=== PATIENT | male | born 1960 | race Caucasian/White ===

== ENCOUNTER 2016-12-17 02:39 | Emergency (ER) | payer BC, OTHER ==
--- NOTE | 2016-12-17 03:09 | ER Document Report ---
ED Syncope and Near Syncope - General Mode of Arrival: Medic Information source: Patient, Relative - at bedside - [facility] Patient complains to provider of: Fainting Episode witnessed (by whom): Yes - Symptoms prior to episode: Abdominal pain - cramping, Other - diaphoretic Quality of pain: Cramping Context: Became unresponsive, Collapsed Injury location: Abdomen, Chest Current symptoms: None/feels back to normal <RUIZ ALBERT - Last Filed: 12/17/16 04:07> <DARLENE POLLARD - Last Filed: 12/17/16 05:30> - General Stated Complaint: POSSIBLE SYNCOPE EPISODE Time Seen by Provider: 12/17/16 02:44 Notes: Patient is a 56-year-old male that presents to the emergency department today secondary to a syncopal episode that occurred just prior to arrival. Patient states he was awoken from his sleep this evening with abdominal pain. Patient states he went to the bathroom and had "explosive diarrhea". at bedside states she noticed the patient "did not look right", and then he "completely passed out", falling and hitting the toilet with his left chest/abdomen. states that the patient became very diaphoretic and had dilated pupils during this episode. Patient states he did not vomit. Patient has not had any recent antibiotic usage. Patient denies any chest pain or bad food recently. (RUIZ ALBERT) - Related Data Allergies/Adverse Reactions: No Known Allergies Allergy (Unverified 12/17/16 03:27) Home Medications: Current Home Medications Amlodipine Besylate [Amlodipine Besylate] 1 tab PO DAILY 12/17/16 [History] Aspirin [Ecotrin 81 mg EC Tablet] 81 mg PO DAILY 12/17/16 [History] Cabergoline [Cabergoline] 0.5 tab PO BID 12/17/16 [History] Canagliflozin/Metformin HCl [Invokamet 150-1,000 mg Tablet] 1 tab PO BID [History] Citalopram Hydrobromide [Celexa] 1 tab PO DAILY 12/17/16 [History] Gabapentin [Gabapentin] 1 cap PO BID 12/17/16 [History] Glimepiride [Glimepiride] 1 tab PO DAILY 12/17/16 [History] Hydrochlorothiazide [Hydrochlorothiazide] 1 cap PO DAILY 12/17/16 [History] Levothyroxine Sodium [Synthroid] 125 mcg PO DAILY 12/17/16 [History] Lisinopril [Lisinopril] 1 tab PO DAILY 12/17/16 [History] Meloxicam [Meloxicam] 1 tab PO DAILY 12/17/16 [History] Omeprazole [Omeprazole] 1 cap PO DAILY 12/17/16 [History] Pioglitazone HCl [Pioglitazone HCl] 1 tab PO DAILY 12/17/16 [History] Past Medical History - General Information source: Patient - Social History Smoking Status: Former Smoker Cigarette use (# per day): No Frequency of alcohol use: None Drug Abuse: None Lives with: Spouse/Significant other Family History: Reviewed & Not Pertinent - Past Medical History Cardiac Medical History: Reports: Hx Hypertension Endocrine Medical History: Reports: Hx Diabetes Mellitus Type 2 Musculoskeltal Medical History: Reports Other - Pituitary gland tumor Past Surgical History: Reports: Other - back surgery <RUIZ ALBERT - Last Filed: 12/17/16 04:07> Review of Systems - Review of Systems Constitutional: No symptoms reported EENT: No symptoms reported Cardiovascular: See HPI, Syncope. denies: Chest pain Respiratory: No symptoms reported Gastrointestinal: See HPI, Abdominal pain, Diarrhea. denies: Vomiting Genitourinary: No symptoms reported Male Genitourinary: No symptoms reported Musculoskeletal: No symptoms reported Skin: No symptoms reported Hematologic/Lymphatic: No symptoms reported Neurological/Psychological: No symptoms reported -: Yes All other systems reviewed and negative <RUIZ ALBERT - Last Filed: 12/17/16 04:07> Physical Exam - Vital signs Interpretation: Hypertensive <RUIZ ALBERT - Last Filed: 12/17/16 04:07> <DARLENE POLLARD - Last Filed: 12/17/16 05:30> - Vital signs Vitals: Temp 98.0 F 12/17/16 02:44 (DARLENE POLLARD) - Notes Notes: Physical Exam: General: Alert, appears well. HEENT: Normocephalic. Atraumatic. PERRL. Extraocular movements intact. Oropharynx clear. Neck: Supple. Non-tender. Respiratory: No respiratory distress. Clear and equal breath sounds bilaterally. Cardiovascular: Regular rate and rhythm. Abdominal: Obese. Non-tender. No distension. Normal Bowel Sounds. Back: Non-tender. No deformity or step off. Extremities: Moves all four extremities. Upper extremities: Normal inspection. Normal ROM. Lower extremities: Normal inspection. No edema. Normal ROM. Neurological: Normal cognition. AAOx4. Normal speech. Psychological: Normal affect. Normal Mood. Skin: Abrasion to left lower chest and left upper abdomen. (RUIZ ALBERT) Course - Laboratory Result Diagrams: 12/17/16 03:01 12/17/16 03:01 <RUIZ ALBERT - Last Filed: 12/17/16 04:07> - Laboratory Result Diagrams: 12/17/16 03:01 12/17/16 03:01 <DARLENE POLLARD - Last Filed: 12/17/16 05:30> - Re-evaluation Re-evalutation: 12/17/16 05:18 Patient feels better. Blood work consistent with GI illness. Troponin negative. Patient is not orthostatic at this time. Feels well and would like to go home. Stable for discharge. Follow-up with PMD. Return immediately if any worsening or concerning symptoms. Understands agrees with plan. Grateful for care. (DARLENE POLLARD) - Vital Signs Vital signs: Temp Pulse Resp BP Pulse Ox 98.0 F 70 18 142/76 H 96 12/17/16 02:44 12/17/16 04:21 12/17/16 04:31 12/17/16 04:31 12/17/16 04:31 (DARLENE POLLARD) - Laboratory Laboratory results interpreted by me: 12/17/16 12/17/16 12/17/16 03:01 03:01 04:06 WBC 14.7 H RBC 6.00 H MCV 79 L MCH 25.7 L RDW 15.1 H Absolute Neutrophils 9.8 H BUN 24 H Glucose 145 H Lipase 406.1 H Urine Glucose (UA) >=500 H (DARLENE POLLARD) Discharge <RUIZ ALBERT - Last Filed: 12/17/16 04:07> <DARLENE POLLARD - Last Filed: 12/17/16 05:30> - Discharge Clinical Impression: Vasovagal episode Diarrhea Qualifiers: Diarrhea type: unspecified type Qualified Code(s): R19.7 - Diarrhea, unspecified Syncope Qualifiers: Syncope type: unspecified Qualified Code(s): R55 - Syncope and collapse Condition: Stable Disposition: HOME, SELF-CARE Instructions: Diarrhea, Nonspecific ([facility]), Syncopal Episode ([facility]), Vasovagal Symptoms ([facility]) Additional Instructions: Please follow-up with your doctor this week. Return immediately if you have any worsening or concerning symptoms. Forms: Return to Work Referrals: RAY REN MD [Primary Care Provider] - Follow up as needed Scribe Attestation: 12/17/16 05:30 I personally performed the services described in the documentation, reviewed and edited the documentation which was dictated to the scribe in my presence, and it accurately records my words and actions. (DARLENE POLLARD) Scribe Documentation - Scribe Written by Scribe:: Whit Johnson, 12/17/2016 0318 acting as scribe for :: Liliam <RUIZ ALBERT - Last Filed: 12/17/16 04:07>
[2016-12-17 03:13] LABS: ABSOLUTE BASOPHILS # (AUTO) 0.1 10^3/uL (0.0-0.2); ABSOLUTE EOSINOPHILS # (AUTO) 0.3 10^3/uL (0.0-0.6); ABSOLUTE MONOCYTES (AUTO) 1.4 10^3/uL (0.1-1.4); ABSOLUTE NEUT (AUTO) 9.8 10^3/uL (1.7-8.2); BASOPHILS % (AUTO) 0.6 % (0-2); EOSINOPHILS % (AUTO) 2.3 % (0-6); HEMATOCRIT 47.4 % (37.9-51.0); HEMOGLOBIN 15.4 g/dL (13.5-17.0); HGB HCT DIFFERENCE -1.2; LYMPHOCYTES % (AUTO) 20.7 % (13-45); MEAN CORPUSCULAR HEMOGLOBIN 25.7 pg (27.0-33.4); MEAN CORPUSCULAR HGB CONC 32.5 g/dL (32.0-36.0); MEAN CORPUSCULAR VOLUME 79 fl (80-97); MONOCYTES % (AUTO) 9.4 % (3-13); RED CELL DISTRIBUTION WIDTH 15.1 % (11.5-14.0); WHITE BLOOD COUNT 14.7 10^3/uL (4.0-10.5)
[2016-12-17 03:23] LABS: ALANINE AMINOTRANSFERASE 37 U/L (21-72); ALBUMIN 4.1 g/dL (3.5-5.0); ALKALINE PHOSPHATASE 99 U/L (38-126); ANION GAP 16 (5-19); ASPARTATE AMINO TRANSFERASE 32 U/L (17-59); BILIRUBIN,TOTAL 0.6 mg/dL (0.2-1.3); BLOOD UREA NITROGEN 24 mg/dL (7-20); CARBON DIOXIDE 22 mmol/L (22-30); CHLORIDE 104 mmol/L (98-107); CREATININE RESULT 1.17 mg/dL (0.52-1.25); GLUCOSE 145 mg/dL (75-110); LIPASE 406.1 U/L (23-300); SODIUM 141.7 mmol/L (137-145); TOTAL PROTEIN 7.8 g/dL (6.3-8.2)
[2016-12-17] MEDS ORDERED: RINGERS SOLUTION,LACTATED 1,000 ML IV ONE (03:30)
[2016-12-17 05:01] LABS: APPEARANCE,URINE CLEAR; BILIRUBIN,URINE NEGATIVE (NEGATIVE); GLUCOSE, URINE >=500 mg/dL (NEGATIVE); KETONES,URINE NEGATIVE (NEGATIVE); LEUKOCYTE ESTERASE,URINE NEGATIVE (NEGATIVE); NITRITE,URINE NEGATIVE (NEGATIVE); PROTEIN,URINE NEGATIVE (NEGATIVE); URINE SPECIFIC GRAVITY 1.018; UROBILINOGEN,URINE NEGATIVE mg/dL (<2.0)
[2016-12-17 05:28] VITALS: BP 140/71
--- NOTE | 2016-12-17 09:43 | EKG REPORT ---
SEVERITY:- NORMAL ECG - SINUS RHYTHM : Confirmed by: Angelina Hernandez 17-Dec-2016 09:43:20
== END 2016-12-17 05:35 | disposition home or self-care (01) ==
LOC: ER 02:39
DX: R55 Syncope and collapse (principal); R19.7 Diarrhea, unspecified; R10.9 Unspecified abdominal pain; R61 Generalized hyperhidrosis; E66.9 Obesity, unspecified; I10 Essential (primary) hypertension; E11.9 Type 2 diabetes mellitus without complications; Z79.82 Long term (current) use of aspirin; Z79.899 Other long term (current) drug therapy
CPT/HCPCS: 36415; 80053; 81001; 83690; 84484; 85025; 93005; 93010; 99284

== ENCOUNTER 2017-01-22 18:33 | Inpatient (IN) | payer BC ==
[2017-01-22] MEDS ORDERED: NORMAL SALINE 1000 ML 1,000 ML IV ONE ×2 (18:57→22:30)
--- NOTE | 2017-01-22 18:59 | ER Document Report ---
ED Medical Screen (RME) - General Stated Complaint: SYNCOPE Mode of Arrival: Wheelchair Information source: Patient Notes: Patient presents with hypotension and dizziness. Patient denies any pain. Patient denies any headache or chest pain. Patient's does state that patient seems dehydrated. Patient had a similar episode about a month ago, and is still getting worked up to figure out what was causing him to become hypotensive. hx: Diabetes, pituitary gland tumor, hypertension, hypothyroid I have greeted and performed a rapid initial assessment of this patient. A comprehensive ED assessment and evaluation of the patient, analysis of test results and completion of the medical decision making process will be conducted by additional ED providers. - Related Data Allergies/Adverse Reactions: No Known Allergies Allergy (Verified 01/22/17 18:55) Past Medical History - Past Medical History Cardiac Medical History: Reports: Hx Hypertension Endocrine Medical History: Reports: Hx Diabetes Mellitus Type 2 Past Surgical History: Reports: Other - back surgery Physical Exam - Vital signs Vitals: Temp Pulse Resp BP Pulse Ox 98.2 F 108 H 14 84/54 L 93 01/22/17 18:50 01/22/17 18:50 01/22/17 18:50 01/22/17 18:50 01/22/17 18:50 - Cardiovascular Rhythm: Tachycardia Heart sounds: S1 appreciated, S2 appreciated Course - Vital Signs Vital signs: Temp Pulse Resp BP Pulse Ox 98.2 F 108 H 14 84/54 L 93 01/22/17 18:50 01/22/17 18:50 01/22/17 18:50 01/22/17 18:50 01/22/17 18:50
--- NOTE | 2017-01-22 19:28 | ER Document Report ---
ED Blood Pressure Problem - General Time seen by provider: 19:20 Mode of Arrival: Wheelchair Information source: Patient, Relative - TRAVEL OUTSIDE OF THE [place] IN LAST 30 DAYS: No - HPI Patient complains to provider of: Low blood pressure Onset: This evening Associated symptoms: Other - See above <YOSVANY ESTRADA - Last Filed: 01/23/17 00:16> <RUBYDARLENE MCCLURE KIRILL - Last Filed: 01/23/17 03:33> - General Chief Complaint: Low Blood Pressure Stated Complaint: low BP Notes: Patient is a 56 year old male, with a past medical history including HTN and pulmonary tumor, who presents to the emergency department complaining of low blood pressure. 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 reports patient was also very pale. Patient denies recent diarrhea, chest pain, difficulty urinating, back pain, and rhinorrhea. Per patient was scheduled to see a captain assistant for an echocardiography this past week but was forced to reschedule for next week. Director Of Conservation: Dr. Wellington, [facility] (YOSVANY ESTRADA) - Related Data Allergies/Adverse Reactions: No Known Allergies Allergy (Verified 01/22/17 18:55) Home Medications: Current Home Medications Exenatide Microspheres [Bydureon Pen] 2 mg SQ Q7D 01/22/17 [History] Past Medical History - General Information source: Patient - Social History Smoking Status: Former Smoker Chew tobacco use (# tins/day): No Frequency of alcohol use: None Drug Abuse: None Family History: Reviewed & Not Pertinent Patient has suicidal ideation: No Patient has homicidal ideation: No - Past Medical History Cardiac Medical History: Reports: Hx Hypertension Pulmonary Medical History: Reports: Other - hx Pulmonary Tumor Endocrine Medical History: Reports: Hx Diabetes Mellitus Type 2 Past Surgical History: Reports: Other - back surgery <YOSVANY ESTRADA - Last Filed: 01/23/17 00:16> Review of Systems - Review of Systems Constitutional: See HPI, Weakness, Other - low BP EENT: denies: Nose discharge Cardiovascular: See HPI, Syncope - near, Dizziness. denies: Chest pain Respiratory: No symptoms reported Gastrointestinal: denies: Diarrhea Genitourinary: denies: Other - Difficulty urinating Male Genitourinary: No symptoms reported Musculoskeletal: denies: Back pain Skin: See HPI, Change in color - pale Hematologic/Lymphatic: No symptoms reported Neurological/Psychological: No symptoms reported -: Yes All other systems reviewed and negative <YSOVANY ESTRADA - Last Filed: 01/23/17 00:16> Physical Exam - Vital signs Interpretation: Hypotensive, Tachycardic - General General appearance: Other - Appears uncomfortable - HEENT Head: Normocephalic, Atraumatic Mucous membranes: Dry - Respiratory Respiratory status: No respiratory distress Chest status: Nontender Breath sounds: Normal Chest palpation: Normal - Cardiovascular Rhythm: Irregularly irregular, Tachycardia Heart sounds: Normal auscultation Murmur: No - Extremities General upper extremity: Normal inspection General lower extremity: Normal inspection - Neurological Neuro grossly intact: Yes Cognition: Normal Orientation: AAOx4 [place] Coma Scale Eye Opening: Spontaneous [place] Coma Scale Verbal: Oriented [place] Coma Scale Motor: Obeys Commands [place] Coma Scale Total: 15 Speech: Normal - Psychological Associated symptoms: Normal affect, Normal mood - Skin Skin Temperature: Warm Skin Moisture: Dry Skin Color: Normal <YOSVANY ESTRADA - Last Filed: 01/23/17 00:16> Course - Laboratory Result Diagrams: 01/22/17 19:00 01/22/17 19:00 - Consults [facility] Time consulted: 20:46 - Called to discuss possible transfer Dr. Rodas Time consulted: 22:29 <YOSVANY ESTRADA - Last Filed: 01/23/17 00:16> - Laboratory Result Diagrams: 01/22/17 19:00 01/22/17 19:00 <DARLENE POLLARD - Last Filed: 01/23/17 03:33> - Re-evaluation Re-evalutation: 01/22/17 Patient is a 56-year-old male who presents with new onset atrial fibrillation with RVR. Patient was initially hypotensive. Patient was given fluids and a dose of Cardizem which she responded to. Patient had intermittent chest pain but no change in troponin. Patient was discussed with cardiology at [place] who will accept the patient in transfer if needed but feels that the patient can likely remain at this facility safely. Discussed with the patient who is agreeable to this plan. Discussed with hospitalist service who will admit the patient. Patient is currently on Cardizem drip at 15. Blood pressure stable. Heart rate is still somewhat tachycardic. Of note, the patient does have an elevated CK will be given another liter of fluids. D-dimer negative. CTA will be held at this time. Patient is stable at time of admission to the [facility]. (DARLENE POLLARD) - Vital Signs Vital signs: Temp Pulse Resp BP Pulse Ox 98.2 F 108 H 18 117/80 96 01/22/17 18:50 01/22/17 18:50 01/23/17 03:01 01/23/17 03:00 01/23/17 03:01 - Laboratory Laboratory results interpreted by me: 01/22/17 01/22/17 01/22/17 19:00 19:00 19:05 RBC 5.76 H MCV 77 L MCH 25.1 L RDW 15.8 H Glucose 158 H Creatine Kinase 264 H Urine Glucose (UA) >=500 H - Consults Dr. Rodas Reason for consultation: 01/22/172228 Dr. Rodas updated with patients 2nd Troponin which was negative 2232 Dr. Rodas called to inquire about reported low blood pressure, manually retook pressure and reported back to Dr. Rodas at 2236 that blood pressure was up to 123/96 (YOSVANY ESTRADA) Critical Care Note - Critical Care Note Total time excluding time spent on procedures (mins): 60 - evaluation and management of new onset atrial fibrillation with RVR, hypotension, chest pain, multiple re-evaluations, consultation with specialist, coordination of admission , counseling of patient <DARLENE POLLARD - Last Filed: 01/23/17 03:33> Discharge <YOSVANY ESTRADA - Last Filed: 01/23/17 00:16> - Discharge Admitting Provider: Hospitalist Unit Admitted: [facility] <DARLENE POLLARD - Last Filed: 01/23/17 03:33> - Discharge Clinical Impression: Atrial fibrillation with rapid ventricular response, New onset a-fib, Diabetes mellitus type 2 with neurological manifestations Disposition: ADMITTED INPATIENT Scribe Attestation: 01/23/17 03:33 I personally performed the services described in the documentation, reviewed and edited the documentation which was dictated to the scribe in my presence, and it accurately records my words and actions. (DARLENE POLLARD) Scribe Documentation - Scribe Written by Lizett:: lizett Mendez, 01/22/17, 2149 acting as scribe for :: Liliam <YOSVANY ESTRADA - Last Filed: 01/23/17 00:16>
[2017-01-22 19:29] LABS: ABSOLUTE BASOPHILS # (AUTO) 0.1 10^3/uL (0.0-0.2); ABSOLUTE EOSINOPHILS # (AUTO) 0.3 10^3/uL (0.0-0.6); ABSOLUTE LYMPHOCYTES (AUTO) 3.1 10^3/uL (0.5-4.7); ABSOLUTE MONOCYTES (AUTO) 0.9 10^3/uL (0.1-1.4); ABSOLUTE NEUT (AUTO) 5.7 10^3/uL (1.7-8.2); BASOPHILS % (AUTO) 0.9 % (0-2); EOSINOPHILS % (AUTO) 2.7 % (0-6); HEMATOCRIT 44.5 % (37.9-51.0); HEMOGLOBIN 14.5 g/dL (13.5-17.0); MEAN CORPUSCULAR HEMOGLOBIN 25.1 pg (27.0-33.4); MEAN CORPUSCULAR HGB CONC 32.5 g/dL (32.0-36.0); MEAN CORPUSCULAR VOLUME 77 fl (80-97); RED BLOOD COUNT 5.76 10^6/uL (4.35-5.55); RED CELL DISTRIBUTION WIDTH 15.8 % (11.5-14.0); SEGMENTED NEUTROPHILS % (AUTO) 56.4 % (42-78)
[2017-01-22 19:36] LABS: APPEARANCE,URINE CLEAR; BILIRUBIN,URINE NEGATIVE (NEGATIVE); GLUCOSE, URINE >=500 mg/dL (NEGATIVE); KETONES,URINE NEGATIVE (NEGATIVE); LEUKOCYTE ESTERASE,URINE NEGATIVE (NEGATIVE); NITRITE,URINE NEGATIVE (NEGATIVE); PROTEIN,URINE NEGATIVE (NEGATIVE); URINE SPECIFIC GRAVITY 1.029; UROBILINOGEN,URINE NEGATIVE mg/dL (<2.0)
[2017-01-22 19:49] LABS: ALANINE AMINOTRANSFERASE 45 U/L (21-72); ALKALINE PHOSPHATASE 96 U/L (38-126); ANION GAP 17 (5-19); ASPARTATE AMINO TRANSFERASE 31 U/L (17-59); BILIRUBIN,DIRECT 0.3 mg/dL (0.0-0.4); BILIRUBIN,TOTAL 0.4 mg/dL (0.2-1.3); BLOOD UREA NITROGEN 15 mg/dL (7-20); CALCIUM 9.9 mg/dL (8.4-10.2); CARBON DIOXIDE 23 mmol/L (22-30); CHLORIDE 100 mmol/L (98-107); CREATINE KINASE 264 U/L (55-170); CREATININE RESULT 1.18 mg/dL (0.52-1.25); GLUCOSE 158 mg/dL (75-110); POTASSIUM 4.5 mmol/L (3.6-5.0); SODIUM 140.1 mmol/L (137-145)
[2017-01-22 20:00] LABS: CREATINE KINASE MB 2.89 ng/mL (<4.55)
[2017-01-22 20:01] LABS: TROPONIN I < 0.012 ng/mL
[2017-01-22] MEDS ORDERED: DILTIAZEM HCL INJ 25 MG/5 ML VIAL IV ONE (20:06)
[2017-01-22] MEDS ORDERED: DILTIAZEM HCL/D5W 125 ML IV PRN (20:20)
[2017-01-23 00:11] LABS: PARTIAL THROMBOPLASTIN TIME 32.8 SEC (23.5-35.8)
[2017-01-23 00:14] LABS: D-DIMER 0.37 ug/mL (0.00-0.50)
[2017-01-23] MEDS ORDERED: DEXTROSE 50%-WATER 25 GM/50 ML DISP.SYRIN IV PRN ×2 (00:50)
[2017-01-23] MEDS ORDERED: DEXTROSE 40% GEL 15 GM TUBE PO PRN ×2 (00:50)
[2017-01-23] MEDS ORDERED: GLUCAGON,HUMAN RECOMB 1 MG INJ IM PRN (00:50)
--- NOTE | 2017-01-23 01:27 | PDOC H&P ---
History of Present Illness Admission Date/PCP: 01/23/17 00:19 PCP Natali Wellington (sp.??) fabius Patient complains of: hypotension History of Present Illness: ISAÍAS MUÑIZ is a 56 year old male with underlying hypertension, [id number] diabetes mellitus with peripheral neuropathy, hypothyroidism, hyperlipidemia, not on medications due to muscle cramps, mild anxiety and depression without suicidal or homicidal ideation, mild reflux, arthritis, currently 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 he felt weak and dizzy and had a near syncopal episode. Blood pressure at home reportedly 70/40. Was noted to be very pale by his . EMS was called. Brought to the emergency room and found to be in atrial fibrillation with rapid ventricular response. Initially hypotensive, but this has responded nicely to IV fluids and pressure has remained stable. Has required Cardizem drip, which is controlling his rate nicely. There's been no chest or abdominal pain, nausea vomiting, fever chills, diarrhea or dysuria. No known history of atrial fibrillation, atrial flutter, or irregular heartbeat. One month ago, he did suffer a syncopal episode and has actually seen his protein specialist one time for evaluation of rapid heart rate and low blood pressure. scheduled to have an echocardiogram next Thursday. Basically negative cardiac history other than hypertension. No previous [place], congestive heart failure. No history of pulmonary embolus or DVT. No recent long trip with prolonged inactivity, or unusual lower extremity swelling or tenderness. 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 Rarely drives for more than 45 minutes before he has to get out and perform other activities. Currently resting quietly, without specific complaints, other than perhaps being mildly tired. Patient has been discussed with emergency room physician who evaluated the patient. . Laboratory results are listed in [employer] and are reviewed. X-ray summary results are listed below, with full report(s) reviewed. . EKG's reviewed. And compared to a prior tracing from the of last month. Social history/personal habits: . 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 No tobacco or alcohol use for many years. No illicit drug use. Allergies/adverse reactions patient uncertain of the specific medication, but likely a statin, which caused leg cramps. Home medications are reviewed from a hand written list provided by nursing staff from their review of his medication bottles and are to be reconciled by nursing staff in [facility]. Home medications initially autopopulated into [facility] may not accurately reflect patient's true medications, dosages, and/or frequencies. REVIEW OF SYSTEMS: Constitutional: No fever or chills. Eyes: Wears glasses. ENT: No swallowing problems or complaints. No hearing problems or complaints. Pulmonary: No current complaints. Cardiovascular: See history and present illness. Gastrointestinal: No current complaints, including nausea or vomiting. Skin: No current complaints, including rashes. Hematologic: No unusual easy bruising or bleeding. Neurologic: Diabetic peripheral neuropathy involving his lower extremities Musculoskeletal: Joint pain from arthritis. Psychiatric: Mild Anxiety depression; denies suicidal or homicidal ideation. Endocrine: No current complaints, including polyuria. Genitourinary: No current complaints, including dysuria. PHYSICAL EXAMINATION: 5 feet 11 inches tall. 125 kg. BMI 38.4 kg/m. Temperature 98.2. Blood pressure 112/83. Pulse 123 and slightly irregular. 93% saturation on room air. Respirations are 12 and unlabored. Obese Otherwise well-developed male appearing approximately his stated age. Pleasant awake alert and cooperative. No obvious distress other than perhaps mildly anxious. Skin is warm and dry. No grossly obvious evidence of rash in areas of skin examined. No subcutaneous nodules palpated. ENT: Hearing grossly normal to normal conversation. Tongue midline on protrusion pink and slightly tacky. Eyes: No scleral icterus. Pupils equal and reactive to light at 4 mm. Leona conjunctivae. Neck is supple and nontender to gentle active range of motion and palpation. Midline trachea. No palpable thyroid nodule mass enlargement or tenderness. Lymphatic: No palpable cervical or clavicular nodes. Neck and lymphatic exams limited by patient body habitus. Psychiatric: Reasonable insight into acute and chronic medical issues. Oriented to time location and why here. Lungs: Auscultation reveals clear and equal breath sounds bilaterally. No use of accessory respiratory muscles. Cardiovascular: Heart slightly irregular rate and rhythm, without gallop murmur or rub. No carotid or abdominal aortic bruits. No ankle or pedal edema. palpable dorsalis pedis pulses. Abdomen: soft, obese, nontender with positive bowel sounds. Unable to adequately evaluate abdomen for masses or organomegaly due to body habitus. Extremities: Feet are warm and dry. No calf tenderness to compression. No grossly obvious visual evidence of calf swelling. Gentle manipulation of lower extremities fails to reveal any obvious evidence of injury or instability to knees hips or ankles. Neurologic: Moves upper extremities grossly normally. Patellar reflexes absent. Absent Babinski. Light touch is slightly decreased at feet, a chronic finding per patient. Dorsiflexion and plantarflexion of feet 5 / 5 and symmetric. Past Medical History Cardiac Medical History: Reports: Hyperlipidema - Not on medication for same due to muscle cramps., Hypertension Denies: Atrial Fibrillation, Congestive Heart Failure, DVT, Myocardial Infarction, Pulmonary Embolism Pulmonary Medical History: Reports: Sleep Apnea Denies: Asthma, Chronic Obstructive Pulmonary Disease (COPD) EENT Medical History: Reports: Eyes - Glasses Denies: Ears, Throat Neurological Medical History: Denies: Hemorrhagic CVA, Ischemic CVA, Seizures Endocrine Medical History: Reports: Diabetes Mellitus Type 2, Hypothyroidism Denies: Diabetes Mellitus Type 1, Hyperthyroidism Renal/ Medical History: Reports: None Malignancy Medical History: Reports: Other - Pituitary tumor, currently on medication for same, with follow-up imaging in the near future. GI Medical History: Reports: Gastroesophageal Reflux Disease Denies: Cirrhosis, Hepatitis, Peptic Ulcer Disease Musculoskeltal Medical History: Reports: Arthritis Skin Medical History: Reports: None Psychiatric Medical History: Reports: Depression, General Anxiety Disorder Denies: Alcohol Dependency, Substance Abuse, Tobacco Dependency Hematology: Reports: None Infectious Medical History: Denies: Clostridium Difficile, Hepatitis B, Hepatitis C, Methicillin- Resistant Staph Aureus Past Surgical History Past Surgical History: Reports: Orthopedic Surgery - Left hand and back Social History Information Source: Patient, Emergency Med Personnel, [facility] Records Lives with: Spouse/Significant other Smoking Status: Former Smoker Frequency of Alcohol Use: None Drugs: None - Advance Directive Resuscitation Status: Full Code Surrogate healthcare decision maker:: Family History Family History: Reviewed & Not Pertinent, Malignancy Parental Family History Reviewed: Yes Children Family History Reviewed: Yes Sibling(s) Family History Reviewed.: Yes Medication/Allergy Home Medications: RX: Aspirin [Ecotrin 81 mg EC Tablet] 81 mg PO DAILY 12/17/16 RX: Cabergoline 0.5 tab PO MOWEFR 12/17/16 RX: Canagliflozin/Metformin HCl [Invokamet 150-1,000 mg Tablet] 1 tab PO BID RX: Citalopram Hydrobromide [Celexa] 1 tab PO DAILY 12/17/16 RX: Gabapentin 1 cap PO BID 12/17/16 RX: Glimepiride 1 tab PO DAILY 12/17/16 RX: Levothyroxine Sodium [Synthroid] 125 mcg PO DAILY 12/17/16 RX: Lisinopril 1 tab PO DAILY 12/17/16 RX: Meloxicam 1 tab PO DAILY 12/17/16 RX: Omeprazole 1 cap PO DAILY 12/17/16 RX: Exenatide Microspheres [Bydureon Pen] 2 mg SQ Q7D 01/22/17 RX: Apixaban [Eliquis 5 mg Tablet] 5 mg PO BID #60 tablet 01/26/17 RX: Aspirin [Ecotrin 81 mg EC Tablet] 81 mg PO DAILY #0 tabec 01/26/17 RX: Atorvastatin Calcium [Lipitor 20 mg Tablet] 20 mg PO QHS #30 tablet RX: Diltiazem HCl [Cardizem Cd 120 mg Capsule] 120 mg PO Q12 #60 cap.sr.24h RX: Dronedarone Hydrochloride [Multaq 400 mg Tablet] 400 mg PO Q12 #60 tablet Allergies/Adverse Reactions: No Known Allergies Allergy (Verified 01/22/17 18:55) Physical Exam Vital Signs: Temp Pulse Resp BP Pulse Ox 98.2 F 108 H 16 104/83 93 01/22/17 18:50 01/22/17 18:50 01/22/17 23:49 01/23/17 00:01 01/22/17 23:01 Results Impressions: Chest X-Ray 01/22/17 00:00 IMPRESSION: NO ACUTE RADIOGRAPHIC FINDING IN THE CHEST. Assessment & Plan - Diagnosis (1) Atrial fibrillation with rapid ventricular response Is this a current diagnosis for this admission?: YesPlan: We'll continue Cardizem drip. Serial troponins. Cardiology consult. Lipid panel. Echocardiogram. I have strongly encouraged patient not to get out of bed without notifying staff , to avoid a fall with injury. Knee high SCDs for DVT prophylaxis, [along with subcutaneous Lovenox . Impression and plans were discussed with patient, who concurs. Time spent in evaluation and management of patient: 66 minutes. (2) Hypotension Qualifiers: Hypotension type: unspecified hypotension type Qualified Code(s): I95.9 - Hypotension, unspecified Is this a current diagnosis for this admission?: Yes (3) New onset a-fib Is this a current diagnosis for this admission?: YesPlan: D-dimer (4) Diabetes mellitus type 2 with neurological manifestations Is this a current diagnosis for this admission?: YesPlan: Cardiac diabetic diet. Accu-Cheks with appropriate sliding scale coverage.Resume home medications as appropriate once these have been determined and reviewed. (5) HLD (hyperlipidemia) Qualifiers: Hyperlipidemia type: unspecified Qualified Code(s): E78.5 - Hyperlipidemia, unspecified Is this a current diagnosis for this admission?: YesPlan: Lipid panel. (6) HTN (hypertension) Qualifiers: Hypertension type: essential hypertension Qualified Code(s): I10 - Essential (primary) hypertension Is this a current diagnosis for this admission?: Yes (7) Hypothyroid Qualifiers: Hypothyroidism type: unspecified Qualified Code(s): E03.9 - Hypothyroidism, unspecified Is this a current diagnosis for this admission?: YesPlan: Resume home medications as appropriate once these have been determined and reviewed. - Inpatient Certification Based on my medical assessment, after consideration of the patient's comorbidities, presenting symptoms, or acuity I expect that the services needed warrant INPATIENT care.: Yes I certify that my determination is in accordance with my understanding of Medicare's requirements for reasonable and necessary INPATIENT services [42 CFR 412.3e].: Yes Medical Necessity: Need Close Monitoring Due to Risk of Patient Decompensation, Need For Continuous Telemetry Monitoring, Risk of Complication if Not Cared For in Hospital, Risk of Diagnosis Which Will Require Inpatient Eval/Care/Monitoring Post Hospital Care: D/C or Transfer Summary
[2017-01-23 04:09] LABS: CHOLESTEROL 187.99 mg/dL (0-200); Direct HDL 27 mg/dL (>40); TRIGLYCERIDES 182 mg/dL (<150)
[2017-01-23 04:20] LABS: DIRECT LDL 133 mg/dL (<100)
[2017-01-23 04:23] LABS: VLDL CHOLESTEROL 36.4 mg/dL (10-31)
[2017-01-23] MEDS ORDERED: INFLUENZA ADLT QUAD (36MOS+) 2016-17 VAC 0.5 ML SYR IM PRN (04:50)
--- NOTE | 2017-01-23 07:06 | EKG REPORT ---
SEVERITY:- ABNORMAL ECG - ATRIAL FIBRILLATION : Confirmed by: Domingo Bell MD 23-Jan-2017 07:06:18
--- NOTE | 2017-01-23 07:07 | EKG REPORT ---
SEVERITY:- ABNORMAL ECG - ATRIAL FIBRILLATION, V-RATE 70-165 : Confirmed by: Domingo Bell MD 23-Jan-2017 07:07:13
[2017-01-23] MEDS: ASPIRIN 81 MG TABLET, ENT COATED PO SCH (09:39)
[2017-01-23] MEDS: DOCUSATE SODIUM 100 MG CAPSULE PO SCH ×2 (09:44→17:47)
[2017-01-23] MEDS ORDERED: ENOXAPARIN SODIUM INJ 40 MG/0.4 ML DISP.SYRIN SUBCUT SCH (10:00)
[2017-01-23] MEDS ORDERED: (PENDING PHARMACY ID) (Exenatide Microspheres [Bydureon Pen] 2 MG) SQ SCH (10:45)
[2017-01-23] MEDS ORDERED: CABERGOLINE PO SCH (10:45)
[2017-01-23] MEDS ORDERED: DRONEDARONE HYDROCHLORIDE 400 MG TABLET PO ONE (12:00)
--- NOTE | 2017-01-23 12:00 | PDOC CONSULTATION ---
Consultation Consult Date: 01/23/17 Attending physician:: NICKY LOMELI Consult reason:: Atrial fibrillation, generalized weakness History of Present Illness Admission Date/PCP: 01/23/17 00:48 RAY REN MD Patient complains of: Generalized weakness and near syncope History of Present Illness: ISAÍAS MUÑIZ is a 56 year old male with underlying hypertension, [id number] diabetes mellitus with peripheral neuropathy, hypothyroidism, hyperlipidemia, not on medications due to muscle cramps, mild anxiety and depression without suicidal or homicidal ideation, mild reflux, arthritis, and currently 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 Blood pressure at home reportedly 70/40. Was noted to be very pale by his . EMS was called. Brought to the emergency room and found to be in atrial fibrillation with rapid ventricular response. Initially hypotensive, but this has responded nicely to IV fluids and pressure has remained stable. Has required Cardizem drip, which is controlling his rate nicely. There's been no chest or abdominal pain, nausea vomiting, fever chills, diarrhea or dysuria. No known history of atrial fibrillation, atrial flutter, or irregular heartbeat. One month ago, he did suffer a syncopal episode and has actually seen his border patrol officer one time for evaluation of rapid heart rate and low blood pressure. His axillae scheduled to have an echocardiogram next Thursday. Basically negative cardiac history other than hypertension. No previous [place], congestive heart failure. No history of pulmonary embolus or DVT. No recent long trip with prolonged inactivity, or unusual lower extremity swelling or tenderness. 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 Rarely drives for more than 45 minutes before he has to get out and perform other activities. Currently resting quietly, without specific complaints, other than perhaps being mildly tired. This history was reviewed and confirmed. There is no history of chest pain. Past Medical History Cardiac Medical History: Reports: Hyperlipidema - Not on medication for same due to muscle cramps., Hypertension Denies: Atrial Fibrillation, Congestive Heart Failure, DVT, Myocardial Infarction, Pulmonary Embolism Pulmonary Medical History: Reports: Sleep Apnea, Other - hx Pulmonary Tumor Denies: Asthma, Chronic Obstructive Pulmonary Disease (COPD) EENT Medical History: Reports: Eyes - Glasses Denies: Ears, Throat Neurological Medical History: Denies: Hemorrhagic CVA, Ischemic CVA, Seizures Endocrine Medical History: Reports: Diabetes Mellitus Type 2, Hypothyroidism Denies: Diabetes Mellitus Type 1, Hyperthyroidism Renal/ Medical History: Reports: None Malignancy Medical History: Reports: Other - Pituitary tumor, currently on medication for same, with follow-up imaging in the near future. GI Medical History: Reports: Gastroesophageal Reflux Disease Denies: Cirrhosis, Hepatitis, Peptic Ulcer Disease Musculoskeltal Medical History: Reports: Arthritis Skin Medical History: Reports: None Psychiatric Medical History: Reports: General Anxiety Disorder Denies: Alcohol Dependency, Depression, Substance Abuse, Tobacco Dependency Hematology: Reports: None Infectious Medical History: Denies: Clostridium Difficile, Hepatitis B, Hepatitis C, Methicillin- Resistant Staph Aureus Past Surgical History Past Surgical History: Reports: Orthopedic Surgery - Left hand and back, Other - back surgery Social History Information Source: Patient Lives with: Spouse/Significant other Smoking Status: Former Smoker Number of Years Smokin Last Time Smoked: 1986 Frequency of Alcohol Use: None Hx Recreational Drug Use: Yes Drugs: Marijuana Hx Prescription Drug Abuse: No - Advance Directive Resuscitation Status: Full Code Surrogate healthcare decision maker:: Patient's Family History Family History: Reviewed & Not Pertinent, Malignancy Parental Family History Reviewed: Yes Children Family History Reviewed: Yes Sibling(s) Family History Reviewed.: Yes Medication/Allergy Home Medications: Amlodipine Besylate [Amlodipine Besylate] 1 tab PO DAILY 12/17/16 Aspirin [Ecotrin 81 mg EC Tablet] 81 mg PO DAILY 12/17/16 Cabergoline [Cabergoline] 0.5 tab PO MOWEFR 12/17/16 Canagliflozin/Metformin HCl [Invokamet 150-1,000 mg Tablet] 1 tab PO BID Citalopram Hydrobromide [Celexa] 1 tab PO DAILY 12/17/16 Gabapentin [Gabapentin] 1 cap PO BID 12/17/16 Glimepiride [Glimepiride] 1 tab PO DAILY 12/17/16 Hydrochlorothiazide [Hydrochlorothiazide] 1 cap PO DAILY 12/17/16 Levothyroxine Sodium [Synthroid] 125 mcg PO DAILY 12/17/16 Lisinopril [Lisinopril] 1 tab PO DAILY 12/17/16 Meloxicam [Meloxicam] 1 tab PO DAILY 12/17/16 Omeprazole [Omeprazole] 1 cap PO DAILY 12/17/16 Pioglitazone HCl [Pioglitazone HCl] 1 tab PO DAILY 12/17/16 Exenatide Microspheres [Bydureon Pen] 2 mg SQ Q7D 01/22/17 Allergies/Adverse Reactions: No Known Allergies Allergy (Verified 01/22/17 18:55) Review of Systems Review of Systems: Please see history of present illness and past medical history as wall. Constitutional: No fever or chills reported. Noted general fatigue and tiredness. Head : No recent chronic headaches, recent head injury. Eyes: No recent eye pain, diplopia, redness, discharge, acute visual changes. Ears: No recent chronic ear pain, acute hearing loss, ear discharge. Oral cavity: No recent ulcerations, bleeding, oral cavity discomfort. Neck: No recent acute neck pain reported. Hematologic: No recent easy bruising or bleeding or hematologic malignancy reported. Lymphatic: No recent lymphatic malignancy, chronic lymphadenopathy reported yet Cardiovascular system review: See history of present illness. History of syncope approximately a month ago. No prior history of palpitations. Respiratory system review: No recent chronic cough, hemoptysis, blood clots in the lungs reported. Mild Shortness of breath on exertion Gastrointestinal system review: Negative for any recent acute or chronic abdominal pain, hematemesis, melena, recent change in bowel habits. Genitourinary system review: No recent acute or chronic hematuria, flank pain, UTI etc. reported. Skin system review: Negative for any recent abnormal bruising, no rash, no pruritus reported. Neurologic: No prior history of strokes, mini strokes, seizure disorder. Psychologic: No history of major psychosis or major depression reported. Musculoskeletal: Minor aches and pains reported. No acute joint swelling reported. Endocrine: No recent polyuria, polydipsia, recent heat or cold intolerance. Physical Exam Vital Signs: Temp Pulse Resp BP Pulse Ox 97.9 F 84 20 95/73 L 96 01/23/17 11:30 01/23/17 11:30 01/23/17 11:30 01/23/17 11:34 01/23/17 11:30 Intake & Output 01/22/17 01/23/17 01/24/17 06:59 06:59 06:59 Intake Total 52 1125 Output Total 1999 Balance 52 -875 Exam: GENERAL: well-nourished and in no acute distress. Alert and oriented x3 HEAD: Atraumatic, normocephalic. EYES: Pupils equal round and reactive to light, extraocular movements intact, sclera anicteric, conjunctiva are normal. ENT: TMs normal, nares patent, oropharynx clear without exudates. Moist mucous membranes. No oral ulcerations or bleeding gums noted NECK: supple without lymphadenopathy. Trachea is central. No cervical or axillary lymphadenopathy noted. Carotids are 2+, JVD WNL LUNGS: Respiration seems nonlabored, no significant accessory muscle action noted. Breath sounds clear to auscultation bilaterally and equal noted. No wheezes rales or rhonchi noted. No significant dullness noted on percussion. CHEST: Palpation of the chest wall shows no significant chest wall tenderness. No other significant abnormalities noted. 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 ABDOMEN: Soft, no significant tenderness appreciated, normoactive bowel sounds. No guarding, no rebound. No rigidity noted . No masses appreciated. EXTREMITIES: Pedal pulses are 1-2+, no calf tenderness noted. No clubbing or cyanosis.trace to 1+ pedal edema noted NEUROLOGICAL: Focused neurological exam showed no significant neurologic deficit. Normal speech, no focal weakness appreciated. PSYCH: Normal mood, normal affect. Judgment and insight within normal limits. SKIN: No significant ecchymosis, rash, ulcerations or signs of pruritus noted. MUSCULOSKELETAL EXAM: No significant joint swelling noted. Results Laboratory Results: 01/23/17 03:46 Triglycerides 182 H Cholesterol 187.99 LDL Cholesterol Direct 133 H VLDL Cholesterol 36.4 H HDL Cholesterol 27 L 01/23/17 01/23/17 03:46 09:37 Troponin I < 0.012 < 0.012 EKG Comments: Atrial fibrillation with rapid ventricular response. No acute ST-T wave changes noted Impressions: Chest X-Ray 01/22/17 00:00 IMPRESSION: NO ACUTE RADIOGRAPHIC FINDING IN THE CHEST. Assessment & Plan - Diagnosis (1) Atrial fibrillation with rapid ventricular response Is this a current diagnosis for this admission?: Yes (2) Hypotension Qualifiers: Hypotension type: unspecified hypotension type Qualified Code(s): I95.9 - Hypotension, unspecified Is this a current diagnosis for this admission?: Yes (3) New onset a-fib Is this a current diagnosis for this admission?: Yes (4) Diabetes mellitus type 2 with neurological manifestations Is this a current diagnosis for this admission?: Yes (5) HLD (hyperlipidemia) Qualifiers: Hyperlipidemia type: unspecified Qualified Code(s): E78.5 - Hyperlipidemia, unspecified Is this a current diagnosis for this admission?: Yes (6) HTN (hypertension) Qualifiers: Hypertension type: essential hypertension Qualified Code(s): I10 - Essential (primary) hypertension Is this a current diagnosis for this admission?: Yes (7) Hypothyroid Qualifiers: Hypothyroidism type: unspecified Qualified Code(s): E03.9 - Hypothyroidism, unspecified Is this a current diagnosis for this admission?: Yes - Notes Notes: Atrial fibrillation with rapid ventricular response: New onset. Patient is intermittently hypotensive. He does not tolerate A. fib well. We'll start patient on Multaq 400 by mouth twice a day. Continue rate control with Cardizem /beta crista/digoxin. Recommend chronic anticoagulation based on his chads score. Hypotension: Agree with IV fluid boluses. Since patient has a history of pituitary tumor, may work up patient for hypoadrenal state. Diabetes: Currently stable. Recommend good control. Dyslipidemia: Consider non-statins. Hypertension: Currently blood pressure on the low side. Patient was on lisinopril and may need to resume that later on. Hypothyroid: Continue replacement therapy. - Time Time Spent: 30 to 50 Minutes - CODE STATUS was discussed, patient remains full code. Surrogate decision-maker patient's . Multiple medical problems were addressed.More than 50% of the time spent coordinating care, discussing management plans with involved caregivers. Management plans discussed with involved personnels. Medical decision making was of moderate complexity. Medications reviewed and adjusted accordingly: Yes
[2017-01-23] MEDS: INSULIN LISPRO 100 UNIT/ML 3 ML VIAL SUBCUT PRN (12:01)
[2017-01-23] MEDS ORDERED: GABAPENTIN 300 MG CAPSULE PO ONE (13:00)
[2017-01-23] MEDS ORDERED: LISINOPRIL 10 MG TABLET PO ONE (13:00)
[2017-01-23] MEDS ORDERED: LANSOPRAZOLE 15 MG TAB.RAP.DR PO ONE (13:00)
[2017-01-23] MEDS ORDERED: GLIMEPIRIDE 1 MG TABLET PO ONE (13:00)
[2017-01-23] MEDS ORDERED: LEVOTHYROXINE SODIUM 0.025 MG TABLET PO ONE (13:00)
[2017-01-23] MEDS ORDERED: CITALOPRAM HYDROBROMIDE 20 MG TABLET PO ONE (13:00)
[2017-01-23] MEDS ORDERED: HYDROCHLOROTHIAZIDE 12.5 MG CAPSULE PO ONE (13:00)
[2017-01-23] MEDS ORDERED: LEVOTHYROXINE SODIUM 0.1 MG TABLET PO ONE (13:00)
[2017-01-23] MEDS: DILTIAZEM HCL/D5W 125 ML IV PRN ×2 (13:34→19:55)
[2017-01-23] MEDS ORDERED: PIOGLITAZONE HCL 30 MG TABLET PO ONE (14:00)
[2017-01-23] MEDS ORDERED: MELOXICAM 7.5 MG TABLET PO ONE (14:00)
[2017-01-23] MEDS: GABAPENTIN 300 MG CAPSULE PO SCH (17:45)
[2017-01-23] MEDS: APIXABAN 5 MG TABLET PO SCH (17:45)
[2017-01-23] MEDS ORDERED: CANAGLIFLOZIN PO SCH (18:00)
[2017-01-23] MEDS ORDERED: METFORMIN HCL PO SCH (18:00)
[2017-01-23] MEDS ORDERED: [UNRECOGNIZED DRUG - OTHER] PO SCH (18:00)
[2017-01-23] MEDS ORDERED: APIXABAN 2.5 MG TABLET PO SCH (18:00)
--- NOTE | 2017-01-23 18:14 | EKG REPORT ---
SEVERITY:- ABNORMAL ECG - ATRIAL FIBRILLATION BORDERLINE T WAVE ABNORMALITIES BORDERLINE PROLONGED QT INTERVAL : Confirmed by: Domingo Bell MD 23-Jan-2017 18:13:28
--- NOTE | 2017-01-23 19:41 | XCELERA REPORT ---
[address] [address] Transthoracic Echocardiogram Report Name: ISAÍAS MUÑIZ Age: 56 yrs Gender: Male : 1960 Patient Status: Inpatient Patient Location: [id number]\S\326\S\A Study Date: 01/23/2017 11:05 AM Height: 71 in Weight: 275 lb BSA: 2.4 m2 Procedure: A complete two-dimensional transthoracic echocardiogram was performed (2D, M-mode, spectral and color flow Doppler). The study was technically difficult with many images being suboptimal in quality. Reason For Study: HYPOTENSION Ordering Physician: NICKY LOMELI Performed By: Tamika Vazquez Interpretation Summary The left ventricular ejection fraction is normal. LV diastolic function could not be adequately assessed. There is mild concentric left ventricular hypertrophy. The left ventricle is grossly normal size. Wall motion cannot be accurately commented on, but no definite regional wall motion abnormalities noted. The right ventricular systolic function is normal. The left atrium is mildly dilated. The right atrium is normal in size There is a trace amount of mitral regurgitation There is no mitral valve stenosis. No aortic regurgitation is present. There is no aortic valve stenosis There is a trace or physiologic amount of tricuspid regurgitation Tricuspid regurgitation jet envelope not well defined to measure RV systolic pressure accurately. The aortic root is not well visualized. The inferior vena cava was not well visualized Minimal pericardial effusion. MMode/2D Measurements \T\ Calculations RVDd: 3.3 cm LVIDd: 4.5 cm FS: 34.4 % Ao root diam: 3.2 cm IVSd: 1.1 cm LVIDs: 3.0 cm EDV(Teich): 92.6 ml LVPWd: 1.1 cm ESV(Teich): 33.7 ml Ao root area: 8.1 cm2 EF(Teich): 63.6 % LA dimension: 4.3 cm LVOT diam: 2.0 cm LVOT area: 3.1 cm2 Doppler Measurements \T\ Calculations MV E max ita: MV P1/2t max ita: Ao V2 max: LV V1 max P.2 cm/sec 103.7 cm/sec 144.8 cm/sec 4.1 mmHg MV A max ita: MV P1/2t: 28.9 msec Ao max PG: LV V1 max: 44.4 cm/sec MVA(P1/2t): 7.6 cm2 8.4 mmHg 101.7 cm/sec MV E/A: 2.3 MV dec slope: CHETAN(V,D): 2.2 cm2 1050 cm/sec2 PA V2 max: 94.8 cm/sec PA max P.6 mmHg Left Ventricle The left ventricle is grossly normal size. There is mild concentric left ventricular hypertrophy. The left ventricular ejection fraction is normal. LV diastolic function could not be adequately assessed. Wall motion cannot be accurately commented on, but no definite regional wall motion abnormalities noted. Right Ventricle Borderline right ventricular enlargement. The right ventricle appears to be hypertrophied. The right ventricular systolic function is normal. Atria The right atrium is normal in size. The left atrium is mildly dilated. Interarterial septum not well visualized and not well dopplered. Cannot comment on ASD/PFO presence. Mitral Valve The mitral valve leaflets are sclerotic, but show no functional abnormalities. There is no mitral valve stenosis. There is a trace amount of mitral regurgitation. Aortic Valve The aortic valve is mildly calcified. The aortic valve is not well visualized secondary to technical limitations. There is no aortic valve stenosis. No aortic regurgitation is present. Tricuspid Valve The tricuspid valve is not well visualized secondary to technical limitations. There is no tricuspid stenosis. There is a trace or physiologic amount of tricuspid regurgitation. Tricuspid regurgitation jet envelope not well defined to measure RV systolic pressure accurately. Pulmonic Valve The pulmonic valve is not well visualized. Great Vessels The aortic root is not well visualized. The inferior vena cava was not well visualized. Effusions Minimal pericardial effusion. : NICKY LOMELI > Angelina Hernandez
[2017-01-23] MEDS: ACETAMINOPHEN 325 MG TABLET PO PRN (20:17)
--- NOTE | 2017-01-23 21:54 | PDOC PROGRESS REPORT ---
Subjective Progress Note for:: 01/23/17 Subjective:: Patient has no new complaints. Remains on Cardizem drip at 15mg/hr. No fever, chills, chest pain, dyspnea, abdominal pain, nausea. Physical Exam Vital Signs: Temp Pulse Resp BP Pulse Ox 98.3 F 81 20 123/81 95 01/23/17 20:00 01/23/17 20:00 01/23/17 20:00 01/23/17 21:01 01/23/17 20:00 Intake & Output 01/22/17 01/23/17 01/24/17 06:59 06:59 06:59 Intake Total 52 2975 Output Total 2000 Balance 52 975 General appearance: PRESENT: no acute distress, well-developed, well-nourished Head exam: PRESENT: atraumatic, normocephalic Eye exam: PRESENT: conjunctiva pink, EOMI, PERRLA. ABSENT: scleral icterus Ear exam: PRESENT: normal external ear exam Mouth exam: PRESENT: moist, tongue midline Neck exam: ABSENT: carotid bruit, JVD, lymphadenopathy, thyromegaly Respiratory exam: PRESENT: clear to auscultation jennifer. ABSENT: rales, rhonchi, wheezes Cardiovascular exam: PRESENT: irregular rhythm. ABSENT: diastolic murmur, rubs , systolic murmur Pulses: PRESENT: normal dorsalis pedis pul Vascular exam: PRESENT: normal capillary refill GI/Abdominal exam: PRESENT: normal bowel sounds, soft. ABSENT: distended, guarding, mass, organolmegaly, rebound, tenderness Rectal exam: PRESENT: deferred Extremities exam: PRESENT: full ROM. ABSENT: calf tenderness, clubbing, pedal edema Neurological exam: PRESENT: alert, awake, oriented to person, oriented to place , oriented to time, oriented to situation, CN II-XII grossly intact. ABSENT: motor sensory deficit Psychiatric exam: PRESENT: appropriate affect, normal mood. ABSENT: homicidal ideation, suicidal ideation Skin exam: PRESENT: dry, intact, warm. ABSENT: cyanosis, rash Results Laboratory Results: 01/23/17 03:46 Triglycerides 182 H Cholesterol 187.99 LDL Cholesterol Direct 133 H VLDL Cholesterol 36.4 H HDL Cholesterol 27 L 01/23/17 01/23/17 03:46 09:37 Troponin I < 0.012 < 0.012 Impressions: Chest X-Ray 01/22/17 00:00 IMPRESSION: NO ACUTE RADIOGRAPHIC FINDING IN THE CHEST. Assessment & Plan - Diagnosis (1) Atrial fibrillation with rapid ventricular response Is this a current diagnosis for this admission?: YesPlan: Dr. Hernandez of cardiology following. On Cardizem drip. Started on Multaq and Eliquis by cardiology. Echo with normal EF, no significant valvular disease. D/ c home when HR stable off cardizem drip. Follow up with Dr. Hernandez. (2) COLTON (obstructive sleep apnea) Is this a current diagnosis for this admission?: YesPlan: On home CPAP. (3) Diabetes mellitus type 2 with neurological manifestations Is this a current diagnosis for this admission?: Yes (4) HTN (hypertension) Qualifiers: Hypertension type: essential hypertension Qualified Code(s): I10 - Essential (primary) hypertension Is this a current diagnosis for this admission?: YesPlan: Norvasc stopped due to low BP. Continue lisinopril and HCTZ. (5) Hypothyroid Qualifiers: Hypothyroidism type: unspecified Qualified Code(s): E03.9 - Hypothyroidism, unspecified Is this a current diagnosis for this admission?: YesPlan: Continue Synthroid. - Time Time Spent with patient: 35 or more minutes Within: within 48 hours
[2017-01-23] MEDS: DRONEDARONE HYDROCHLORIDE 400 MG TABLET PO SCH (23:35)
[2017-01-24] MEDS: DILTIAZEM HCL/D5W 125 ML IV PRN (03:34)
[2017-01-24] MEDS: LISINOPRIL 10 MG TABLET PO SCH (09:10)
[2017-01-24] MEDS: LANSOPRAZOLE 15 MG TAB.RAP.DR PO SCH (09:11)
[2017-01-24] MEDS: LEVOTHYROXINE SODIUM 0.025 MG TABLET PO SCH (09:11)
[2017-01-24] MEDS: LEVOTHYROXINE SODIUM 0.1 MG TABLET PO SCH (09:12)
[2017-01-24] MEDS: CITALOPRAM HYDROBROMIDE 20 MG TABLET PO SCH (09:12)
[2017-01-24] MEDS: GLIMEPIRIDE 1 MG TABLET PO SCH (09:13)
[2017-01-24] MEDS: GABAPENTIN 300 MG CAPSULE PO SCH ×2 (09:13→18:15)
[2017-01-24] MEDS: ASPIRIN 81 MG TABLET, ENT COATED PO SCH (09:14)
[2017-01-24] MEDS: APIXABAN 5 MG TABLET PO SCH ×2 (09:16→18:15)
[2017-01-24] MEDS: DRONEDARONE HYDROCHLORIDE 400 MG TABLET PO SCH ×2 (09:16→23:28)
[2017-01-24] MEDS: INSULIN LISPRO 100 UNIT/ML 3 ML VIAL SUBCUT PRN (09:21)
[2017-01-24] MEDS: DOCUSATE SODIUM 100 MG CAPSULE PO SCH ×2 (09:21→18:20)
[2017-01-24] MEDS ORDERED: GLIMEPIRIDE PO SCH (10:00)
[2017-01-24] MEDS ORDERED: (PENDING PHARMACY ID) (Lisinopril [Lisinopril] 1 TAB) PO SCH (10:00)
[2017-01-24] MEDS ORDERED: LISINOPRIL 10 MG TABLET PO SCH (10:00)
[2017-01-24] MEDS ORDERED: HYDROCHLOROTHIAZIDE 12.5 MG CAPSULE PO SCH (10:00)
[2017-01-24] MEDS ORDERED: (PENDING PHARMACY ID) (Omeprazole [Omeprazole] 1 CAP) PO SCH (10:00)
[2017-01-24] MEDS ORDERED: (PENDING PHARMACY ID) (Levothyroxine Sodium [Synthroid] 125 MCG) PO SCH (10:00)
[2017-01-24] MEDS ORDERED: PIOGLITAZONE HCL 30 MG TABLET PO SCH (10:00)
[2017-01-24] MEDS: MELOXICAM 7.5 MG TABLET PO SCH (11:40)
--- NOTE | 2017-01-24 12:21 | PDOC PROGRESS REPORT ---
Subjective Progress Note for:: 01/24/17 Subjective:: Patient seems to be doing better with gradual improvement. Pt is denying any chest arm or neck discomfort. Patient denying any PND, orthopnea. Patient denied any sustained palpitations, dizziness, syncope, near syncope. Patient denying any fever chills. Patient denying any other significant discomfort. Patient is persistent atrial fibrillation. Review of systems: Rest review of systems negative. Medications: Medications have been reviewed. Physical Exam Vital Signs: Temp Pulse Resp BP Pulse Ox 97.6 F 75 18 103/64 95 01/24/17 07:23 01/24/17 07:23 01/24/17 07:23 01/24/17 08:01 01/24/17 07:23 Intake & Output 01/23/17 01/24/17 01/25/17 06:59 06:59 06:59 Intake Total 52 3480 Output Total 3400 Balance 52 80 Weight 123.2 kg Exam: GENERAL: well-nourished and in no acute distress. Alert and oriented x3 HEAD: Atraumatic, normocephalic. EYES: Pupils equal round and reactive to light, extraocular movements intact, sclera anicteric, conjunctiva are normal. ENT: TMs normal, nares patent, oropharynx clear without exudates. Moist mucous membranes. No oral ulcerations or bleeding gums noted NECK: supple without lymphadenopathy. Trachea is central. No cervical or axillary lymphadenopathy noted. Carotids are 2+, JVD WNL LUNGS: Respiration seems nonlabored, no significant accessory muscle action noted. Breath sounds clear to auscultation bilaterally and equal noted. No wheezes rales or rhonchi noted. No significant dullness noted on percussion. CHEST: Palpation of the chest wall shows no significant chest wall tenderness. No other significant abnormalities noted. HEART: [place] [employer], No PSH, 1/6 KATH aortic area, 1/6 peter systolic murmur mitral area, no rubs, no gallops. ABDOMEN: Soft, no significant tenderness appreciated, normoactive bowel sounds. No guarding, no rebound. No rigidity noted . No masses appreciated. EXTREMITIES: Pedal pulses are 1-2+, no calf tenderness noted. No clubbing or cyanosis.trace to 1+ pedal edema noted NEUROLOGICAL: Focused neurological exam showed no significant neurologic deficit. Normal speech, no focal weakness appreciated. PSYCH: Normal mood, normal affect. Judgment and insight within normal limits. SKIN: No significant ecchymosis, rash, ulcerations or signs of pruritus noted. MUSCULOSKELETAL EXAM: No significant joint swelling noted. Results Laboratory Results: 01/23/17 01/23/17 03:46 09:37 Troponin I < 0.012 < 0.012 Impressions: Chest X-Ray 01/22/17 00:00 IMPRESSION: NO ACUTE RADIOGRAPHIC FINDING IN THE CHEST. Assessment & Plan - Diagnosis (1) Atrial fibrillation with rapid ventricular response Is this a current diagnosis for this admission?: Yes (2) Hypotension Qualifiers: Hypotension type: unspecified hypotension type Qualified Code(s): I95.9 - Hypotension, unspecified Is this a current diagnosis for this admission?: Yes (3) New onset a-fib Is this a current diagnosis for this admission?: Yes (4) Diabetes mellitus type 2 with neurological manifestations Is this a current diagnosis for this admission?: Yes (5) HLD (hyperlipidemia) Qualifiers: Hyperlipidemia type: unspecified Qualified Code(s): E78.5 - Hyperlipidemia, unspecified Is this a current diagnosis for this admission?: Yes (6) HTN (hypertension) Qualifiers: Hypertension type: essential hypertension Qualified Code(s): I10 - Essential (primary) hypertension Is this a current diagnosis for this admission?: Yes (7) Hypothyroid Qualifiers: Hypothyroidism type: unspecified Qualified Code(s): E03.9 - Hypothyroidism, unspecified Is this a current diagnosis for this admission?: Yes (8) COLTON (obstructive sleep apnea) Is this a current diagnosis for this admission?: Yes - Notes Notes: Atrial fibrillation: Now persistent. Heart rate is variable but reasonably well controlled. Discussed with Dr. Alexander Sow, cat operator in [place]. After discussion, patient being placed on Ranexa 500 mg by mouth twice a day, will continue Multaq. Patient put on list for transfer for transesophageal echocardiogram, cardioversion/ablation. On talking to the patient and his , it seems patient has a history of paroxysmal atrial fibrillation going back at least a few months. Possible syncope could be related to this and precipitation of neuro cardiogenic reflex. These were discussed. Alternative of chronic anticoagulation for at least 3-4 weeks and then cardioversion was also discussed. Patient definitely wishes to explore ablation therapy. Hypertension: Currently resolved. Diabetes: Patient on a good regimen. Hyperlipidemia: LDL goal is less than 70. Recommend statin therapy at least intermediate or high dose, of high potency status. Periodic lipid panel and liver panel is indicated. Patient to report any significant muscle discomfort or other side effects. Hypertension: Reasonably well controlled. Blood pressure goal in this patient is 135/85 or less. This was discussed with the patient. Currently blood pressure under reasonable control. Better medication for this patient are ELY inhibitor/ARB/beta crista etc. discussed side effects of uncontrolled hypertension and also severe hypotension. Sleep apnea: Patient claims that he has gained significant amount of weight after his back surgery, he might need a repeat titration. This was discussed. He wishes to follow up with me regarding this. - Time Time with patient: Greater than 35 minutes
[2017-01-24 13:25] LABS: ANION GAP 12 (5-19); BLOOD UREA NITROGEN 16 mg/dL (7-20); CALCIUM 9.7 mg/dL (8.4-10.2); CARBON DIOXIDE 25 mmol/L (22-30); CHLORIDE 105 mmol/L (98-107); GLUCOSE 131 mg/dL (75-110); MAGNESIUM 1.9 mg/dL (1.6-2.3); POTASSIUM 3.9 mmol/L (3.6-5.0); SODIUM 141.8 mmol/L (137-145)
--- NOTE | 2017-01-24 17:36 | PDOC PROGRESS REPORT ---
Subjective Progress Note for:: 01/24/17 Subjective:: Patient has no new complaints. I discussed with Dr. Pfeiffer, cardiology. The patient is now in persistent atrial fibrillation. Dr. Hernandez has discussed with ward service supervisor Dr. Alexander Sow at [facility]. The plan is to transfer for her EP study and possible ablation. Physical Exam Vital Signs: Temp Pulse Resp BP Pulse Ox 97.4 F 107 H 20 121/75 95 01/24/17 11:14 01/24/17 15:00 01/24/17 11:14 01/24/17 16:03 01/24/17 11:14 Intake & Output 01/23/17 01/24/17 01/25/17 06:59 06:59 06:59 Intake Total 52 3480 931 Output Total 3400 1000 Balance 52 80 -69 Weight 123.2 kg Additional comments: General appearance: PRESENT: no acute distress, well-developed, well-nourished Head exam: PRESENT: atraumatic, normocephalic Eye exam: PRESENT: conjunctiva pink, EOMI, PERRLA. ABSENT: scleral icterus Ear exam: PRESENT: normal external ear exam Mouth exam: PRESENT: moist, tongue midline Neck exam: ABSENT: carotid bruit, JVD, lymphadenopathy, thyromegaly Respiratory exam: PRESENT: clear to auscultation jennifer. ABSENT: rales, rhonchi, wheezes Cardiovascular exam: PRESENT: irregular rhythm. ABSENT: diastolic murmur, rubs , systolic murmur Pulses: PRESENT: normal dorsalis pedis pul Vascular exam: PRESENT: normal capillary refill GI/Abdominal exam: PRESENT: normal bowel sounds, soft. ABSENT: distended, guarding, mass, organolmegaly, rebound, tenderness Rectal exam: PRESENT: deferred Extremities exam: PRESENT: full ROM. ABSENT: calf tenderness, clubbing, pedal edema Neurological exam: PRESENT: alert, awake, oriented to person, oriented to place , oriented to time, oriented to situation, CN II-XII grossly intact. ABSENT: motor sensory deficit Psychiatric exam: PRESENT: appropriate affect, normal mood. ABSENT: homicidal ideation, suicidal ideation Skin exam: PRESENT: dry, intact, warm. ABSENT: cyanosis, rash Results Laboratory Results: 01/24/17 12:55 01/24/17 12:55 Sodium 141.8 Potassium 3.9 Chloride 105 Carbon Dioxide 25 Anion Gap 12 BUN 16 Creatinine 1.10 Est GFR ( Amer) > 60 Est GFR (Non-Af Amer) > 60 Glucose 131 H Calcium 9.7 Magnesium 1.9 01/23/17 01/23/17 03:46 09:37 Troponin I < 0.012 < 0.012 Impressions: Chest X-Ray 01/22/17 00:00 IMPRESSION: NO ACUTE RADIOGRAPHIC FINDING IN THE CHEST. Assessment & Plan - Diagnosis (1) Atrial fibrillation with rapid ventricular response Is this a current diagnosis for this admission?: YesPlan: Dr. Pfeiffer of cardiology is following. At the patient's rate is controlled. He has been on a Cardizem drip. He is also on Multaq and Eliquis. The echo showed normal EF, no significant valvular disease. As noted above, Dr. Hernandez has discussed with ward service supervisor Dr. Alexander Sow at [facility]. The plan is for transfer for electrophysiology study and possible ablation. (2) COLTON (obstructive sleep apnea) Is this a current diagnosis for this admission?: YesPlan: On home CPAP. (3) Diabetes mellitus type 2 with neurological manifestations Is this a current diagnosis for this admission?: Yes (4) HTN (hypertension) Qualifiers: Hypertension type: essential hypertension Qualified Code(s): I10 - Essential (primary) hypertension Is this a current diagnosis for this admission?: YesPlan: Continue current Rx. (5) Hypothyroid Qualifiers: Hypothyroidism type: unspecified Qualified Code(s): E03.9 - Hypothyroidism, unspecified Is this a current diagnosis for this admission?: YesPlan: Continue current Rx.
[2017-01-24] MEDS: METFORMIN HCL 500 MG TABLET PO SCH (18:14)
[2017-01-24] MEDS ORDERED: ATORVASTATIN CALCIUM 10 MG TABLET PO SCH (22:00)
[2017-01-24] MEDS: RANOLAZINE 500 MG TAB.SR.12H PO SCH (23:27)
[2017-01-24] MEDS: ATORVASTATIN CALCIUM 20 MG TABLET PO SCH (23:28)
[2017-01-25] MEDS: ACETAMINOPHEN 325 MG TABLET PO PRN (02:37)
[2017-01-25] MEDS: METFORMIN HCL 500 MG TABLET PO SCH ×2 (08:16→16:25)
[2017-01-25] MEDS: LANSOPRAZOLE 15 MG TAB.RAP.DR PO SCH (08:16)
--- NOTE | 2017-01-25 08:53 | EKG REPORT ---
SEVERITY:- BORDERLINE ECG - SINUS RHYTHM BORDERLINE T ABNORMALITIES, INFERIOR LEADS : Confirmed by: Domingo Bell MD 25-Jan-2017 08:52:58
[2017-01-25] MEDS: GABAPENTIN 300 MG CAPSULE PO SCH ×2 (10:04→17:28)
[2017-01-25] MEDS: RANOLAZINE 500 MG TAB.SR.12H PO SCH ×2 (10:04→22:16)
[2017-01-25] MEDS: LISINOPRIL 10 MG TABLET PO SCH (10:05)
[2017-01-25] MEDS: ASPIRIN 81 MG TABLET, ENT COATED PO SCH (10:05)
[2017-01-25] MEDS: MELOXICAM 7.5 MG TABLET PO SCH (10:06)
[2017-01-25] MEDS: DRONEDARONE HYDROCHLORIDE 400 MG TABLET PO SCH ×2 (10:06→22:17)
[2017-01-25] MEDS: LEVOTHYROXINE SODIUM 0.025 MG TABLET PO SCH (10:06)
[2017-01-25] MEDS: LEVOTHYROXINE SODIUM 0.1 MG TABLET PO SCH (10:06)
[2017-01-25] MEDS: DOCUSATE SODIUM 100 MG CAPSULE PO SCH ×2 (10:07→17:28)
[2017-01-25] MEDS: APIXABAN 5 MG TABLET PO SCH ×2 (10:08→17:29)
[2017-01-25] MEDS: GLIMEPIRIDE 1 MG TABLET PO SCH (10:08)
[2017-01-25] MEDS: CITALOPRAM HYDROBROMIDE 20 MG TABLET PO SCH (10:08)
[2017-01-25] MEDS: DILTIAZEM HCL 120 MG CAP.SR.24H PO SCH ×2 (10:44→22:16)
--- NOTE | 2017-01-25 11:45 | PDOC PROGRESS REPORT ---
Subjective Progress Note for:: 01/25/17 Subjective:: Patient feels well. He is now in normal sinus rhythm. He feels he knows the moment he converted late last night. I have discussed the above with Dr. Hernandez of cardiology. The transferred to [facility] for electrophysiology study and possible ablation is now canceled. The patient's medications have been adjusted. Physical Exam Vital Signs: Temp Pulse Resp BP Pulse Ox 97.4 F 80 18 121/71 96 01/25/17 07:23 01/25/17 07:23 01/25/17 07:23 01/25/17 07:23 01/25/17 07:23 Intake & Output 01/24/17 01/25/17 01/26/17 06:59 06:59 06:59 Intake Total 3480 3375 Output Total 3400 3200 Balance 80 175 Weight 123.2 kg 123.8 kg Additional comments: General appearance: PRESENT: no acute distress, well-developed, well-nourished Head exam: PRESENT: atraumatic, normocephalic Eye exam: PRESENT: conjunctiva pink, EOMI, PERRLA. ABSENT: scleral icterus Ear exam: PRESENT: normal external ear exam Mouth exam: PRESENT: moist, tongue midline Neck exam: ABSENT: carotid bruit, JVD, lymphadenopathy, thyromegaly Respiratory exam: PRESENT: clear to auscultation jennifer. ABSENT: rales, rhonchi, wheezes Cardiovascular exam: PRESENT: regular rate and rhythm. ABSENT: diastolic murmur , rubs, systolic murmur Pulses: PRESENT: normal dorsalis pedis pul Vascular exam: PRESENT: normal capillary refill GI/Abdominal exam: PRESENT: normal bowel sounds, soft. ABSENT: distended, guarding, mass, organolmegaly, rebound, tenderness Rectal exam: PRESENT: deferred Extremities exam: PRESENT: full ROM. ABSENT: calf tenderness, clubbing, pedal edema Neurological exam: PRESENT: alert, awake, oriented to person, oriented to place , oriented to time, oriented to situation, CN II-XII grossly intact. ABSENT: motor sensory deficit Psychiatric exam: PRESENT: appropriate affect, normal mood. ABSENT: homicidal ideation, suicidal ideation Skin exam: PRESENT: dry, intact, warm. ABSENT: cyanosis, rash Results Laboratory Results: 01/24/17 12:55 01/24/17 12:55 Sodium 141.8 Potassium 3.9 Chloride 105 Carbon Dioxide 25 Anion Gap 12 BUN 16 Creatinine 1.10 Est GFR ( Amer) > 60 Est GFR (Non-Af Amer) > 60 Glucose 131 H Calcium 9.7 Magnesium 1.9 01/23/17 01/23/17 03:46 09:37 Troponin I < 0.012 < 0.012 Impressions: Chest X-Ray 01/22/17 00:00 IMPRESSION: NO ACUTE RADIOGRAPHIC FINDING IN THE CHEST. Assessment & Plan - Diagnosis (1) Atrial fibrillation with rapid ventricular response Is this a current diagnosis for this admission?: YesPlan: The patient has converted to a normal sinus rhythm. (2) COLTON (obstructive sleep apnea) Is this a current diagnosis for this admission?: YesPlan: On home CPAP. (3) Diabetes mellitus type 2 with neurological manifestations Is this a current diagnosis for this admission?: YesPlan: Glucose control is in acceptable range. (4) HTN (hypertension) Qualifiers: Hypertension type: essential hypertension Qualified Code(s): I10 - Essential (primary) hypertension Is this a current diagnosis for this admission?: YesPlan: Blood pressure is in good control. Observe with the medication changes. (5) Hypothyroid Qualifiers: Hypothyroidism type: unspecified Qualified Code(s): E03.9 - Hypothyroidism, unspecified Is this a current diagnosis for this admission?: YesPlan: Continue current Rx.
--- NOTE | 2017-01-25 15:39 | PDOC PROGRESS REPORT ---
Subjective Progress Note for:: 01/25/17 Subjective:: Patient seems to be doing better. He converted to sinus rhythm overnight. Pt is denying any chest arm or neck discomfort. Patient denying any PND, orthopnea. Patient denied any sustained palpitations, dizziness, syncope, near syncope. Patient denying any fever chills. Patient denying any other significant discomfort. Patient is maintaining sinus rhythm. Review of systems: Rest review of systems negative. Medications: Medications have been reviewed. Physical Exam Vital Signs: Temp Pulse Resp BP Pulse Ox 97.6 F 83 18 140/87 H 96 01/25/17 12:14 01/25/17 12:14 01/25/17 12:14 01/25/17 12:14 01/25/17 12:14 Intake & Output 01/24/17 01/25/17 01/26/17 06:59 06:59 06:59 Intake Total 3480 3375 1100 Output Total 3400 3200 Balance 80 175 1100 Weight 123.2 kg 123.8 kg Exam: GENERAL: well-nourished and in no acute distress. Alert and oriented x3 HEAD: Atraumatic, normocephalic. EYES: Pupils equal round and reactive to light, extraocular movements intact, sclera anicteric, conjunctiva are normal. ENT: TMs normal, nares patent, oropharynx clear without exudates. Moist mucous membranes. No oral ulcerations or bleeding gums noted NECK: supple without lymphadenopathy. Trachea is central. No cervical or axillary lymphadenopathy noted. Carotids are 2+, JVD WNL LUNGS: Respiration seems nonlabored, no significant accessory muscle action noted. Breath sounds clear to auscultation bilaterally and equal noted. No wheezes rales or rhonchi noted. No significant dullness noted on percussion. CHEST: Palpation of the chest wall shows no significant chest wall tenderness. No other significant abnormalities noted. HEART: [place] [employer]ER, No PSH, 1/6 KATH aortic area, 1/6 peter systolic murmur mitral area, no rubs, no gallops. ABDOMEN: Soft, no significant tenderness appreciated, normoactive bowel sounds. No guarding, no rebound. No rigidity noted . No masses appreciated. EXTREMITIES: Pedal pulses are 1-2+, no calf tenderness noted. No clubbing or cyanosis.trace to 1+ pedal edema noted NEUROLOGICAL: Focused neurological exam showed no significant neurologic deficit. Normal speech, no focal weakness appreciated. PSYCH: Normal mood, normal affect. Judgment and insight within normal limits. SKIN: No significant ecchymosis, rash, ulcerations or signs of pruritus noted. MUSCULOSKELETAL EXAM: No significant joint swelling noted. Results Laboratory Results: 01/24/17 12:55 01/23/17 01/23/17 03:46 09:37 Troponin I < 0.012 < 0.012 EKG Comments: 12-lead EKG this morning showed sinus rhythm. No acute ST-T wave changes noted. QTC WNL Impressions: Chest X-Ray 01/22/17 00:00 IMPRESSION: NO ACUTE RADIOGRAPHIC FINDING IN THE CHEST. Assessment & Plan - Diagnosis (1) Atrial fibrillation with rapid ventricular response Is this a current diagnosis for this admission?: Yes (2) Hypotension Qualifiers: Hypotension type: unspecified hypotension type Qualified Code(s): I95.9 - Hypotension, unspecified Is this a current diagnosis for this admission?: Yes (3) New onset a-fib Is this a current diagnosis for this admission?: Yes (4) Diabetes mellitus type 2 with neurological manifestations Is this a current diagnosis for this admission?: Yes (5) HLD (hyperlipidemia) Qualifiers: Hyperlipidemia type: unspecified Qualified Code(s): E78.5 - Hyperlipidemia, unspecified Is this a current diagnosis for this admission?: Yes (6) HTN (hypertension) Qualifiers: Hypertension type: essential hypertension Qualified Code(s): I10 - Essential (primary) hypertension Is this a current diagnosis for this admission?: Yes (7) Hypothyroid Qualifiers: Hypothyroidism type: unspecified Qualified Code(s): E03.9 - Hypothyroidism, unspecified Is this a current diagnosis for this admission?: Yes (8) COLTON (obstructive sleep apnea) Is this a current diagnosis for this admission?: Yes - Notes Notes: Atrial fibrillation: Paroxysmal now has converted to sinus rhythm. Will recommend continuing Multaq for at least one month. Continue chronic anticoagulation for at least 1 month if not indefinite. We will decide this in the office. Patient will also see Dr. Alexander Sow as an outpatient for consideration of ablation therapy. Hypertension: Improved. Hypotension: Resolved. Diabetes: Patient's medical management has been optimized. Hyperlipidemia: Currently stable. Hypothyroidism: Continue replacement therapy. Obstructive sleep apnea: Patient has gained a lot of weight recently. Patient' s CPAP machine also more than 5 years old. Patient will benefit from a repeat titration. Patient would need a split study is scheduled. Relationship between untreated sleep apnea or undertreated sleep apnea and atrial fibrillation discussed. History of syncopal spell: Patient was advised not to drive at least for 6 weeks if not longer. Patient was on list to go to [facility] for cardioversion/ablation but now that he has converted to sinus rhythm, after discussion with Alexander Sow, the transfer was canceled. - Time Time with patient: Greater than 35 minutes - CODE STATUS was discussed, patient remains full code. Surrogate decision-maker patient's . Multiple medical problems were addressed.More than 50% of the time spent coordinating care, discussing management plans with involved caregivers. Management plans discussed with involved personnels. Medical decision making was of moderate complexity. Patient would prefer to follow up with me. Patient will be given an outpatient appointment on discharge. Medications reviewed and adjusted accordingly: Yes
[2017-01-25] MEDS: ATORVASTATIN CALCIUM 20 MG TABLET PO SCH (22:17)
[2017-01-26] MEDS: METFORMIN HCL 500 MG TABLET PO SCH (08:28)
[2017-01-26] MEDS: LANSOPRAZOLE 15 MG TAB.RAP.DR PO SCH (08:30)
[2017-01-26] MEDS: GABAPENTIN 300 MG CAPSULE PO SCH (10:08)
[2017-01-26] MEDS: GLIMEPIRIDE 1 MG TABLET PO SCH (10:08)
[2017-01-26] MEDS: LISINOPRIL 10 MG TABLET PO SCH (10:08)
[2017-01-26] MEDS: DILTIAZEM HCL 120 MG CAP.SR.24H PO SCH (10:09)
[2017-01-26] MEDS: DRONEDARONE HYDROCHLORIDE 400 MG TABLET PO SCH (10:09)
[2017-01-26] MEDS: ASPIRIN 81 MG TABLET, ENT COATED PO SCH (10:09)
[2017-01-26] MEDS: DOCUSATE SODIUM 100 MG CAPSULE PO SCH (10:09)
[2017-01-26] MEDS: CITALOPRAM HYDROBROMIDE 20 MG TABLET PO SCH (10:09)
[2017-01-26] MEDS: LEVOTHYROXINE SODIUM 0.025 MG TABLET PO SCH (10:10)
[2017-01-26] MEDS: LEVOTHYROXINE SODIUM 0.1 MG TABLET PO SCH (10:10)
[2017-01-26] MEDS: APIXABAN 5 MG TABLET PO SCH (10:10)
[2017-01-26] MEDS: RANOLAZINE 500 MG TAB.SR.12H PO SCH (10:10)
--- NOTE | 2017-01-26 11:28 | PDOC DISCHARGE SUMMARY ---
General - Admit/Disc Date/PCP Admission Date/Primary Care Provider: 01/23/17 00:48 RAY REN MD Discharge Date: 01/26/17 - Discharge Diagnosis (1) Atrial fibrillation with rapid ventricular response Is this a current diagnosis for this admission?: YesSummary: The patient converted from atrial fibrillation to a normal sinus rhythm. (2) COLTON (obstructive sleep apnea) Is this a current diagnosis for this admission?: YesSummary: Patient to continue home CPAP. (3) Diabetes mellitus type 2 with neurological manifestations Is this a current diagnosis for this admission?: YesSummary: Diabetes control acceptable. Continue current Rx. (4) HTN (hypertension) Is this a current diagnosis for this admission?: YesSummary: Blood pressure is currently under good control. Observe with recent medication changes. (5) Hypothyroid Is this a current diagnosis for this admission?: YesSummary: Continue current Rx. - Additional Information Resuscitation Status: Full Code Discharge Diet: Cardiac Discharge Activity: Activity As Tolerated Home Medications: Aspirin [Ecotrin 81 mg EC Tablet] 81 mg PO DAILY 12/17/16 Cabergoline 0.5 tab PO MOWEFR 12/17/16 Canagliflozin/Metformin HCl [Invokamet 150-1,000 mg Tablet] 1 tab PO BID Citalopram Hydrobromide [Celexa] 1 tab PO DAILY 12/17/16 Gabapentin 1 cap PO BID 12/17/16 Glimepiride 1 tab PO DAILY 12/17/16 Levothyroxine Sodium [Synthroid] 125 mcg PO DAILY 12/17/16 Lisinopril 1 tab PO DAILY 12/17/16 Meloxicam 1 tab PO DAILY 12/17/16 Omeprazole 1 cap PO DAILY 12/17/16 Exenatide Microspheres [Bydureon Pen] 2 mg SQ Q7D 01/22/17 Apixaban [Eliquis 5 mg Tablet] 5 mg PO BID #60 tablet 01/26/17 Aspirin [Ecotrin 81 mg EC Tablet] 81 mg PO DAILY #0 tabec 01/26/17 Atorvastatin Calcium [Lipitor 20 mg Tablet] 20 mg PO QHS #30 tablet 01/26/17 Diltiazem HCl [Cardizem Cd 120 mg Capsule] 120 mg PO Q12 #60 cap.sr.24h Dronedarone Hydrochloride [Multaq 400 mg Tablet] 400 mg PO Q12 #60 tablet History of Present Illness Patient complains of: Hypotension History of Present Illness: ISAÍAS MUÑIZ is a 56 year old male with underlying hypertension, [id number] diabetes mellitus with peripheral neuropathy, hypothyroidism, hyperlipidemia, not on medications due to muscle cramps, mild anxiety and depression without suicidal or homicidal ideation, mild reflux, arthritis, and currently 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 Blood pressure at home reportedly 70/40. Was noted to be very pale by his . EMS was called. Brought to the emergency room and found to be in atrial fibrillation with rapid ventricular response. Initially hypotensive, but this has responded nicely to IV fluids and pressure has remained stable. Has required Cardizem drip, which is controlling his rate nicely. There's been no chest or abdominal pain, nausea vomiting, fever chills, diarrhea or dysuria. No known history of atrial fibrillation, atrial flutter, or irregular heartbeat. One month ago, he did suffer a syncopal episode and has actually seen his compensation vice president one time for evaluation of rapid heart rate and low blood pressure. His axillae scheduled to have an echocardiogram next Thursday. Basically negative cardiac history other than hypertension. No previous [place], congestive heart failure. No history of pulmonary embolus or DVT. No recent long trip with prolonged inactivity, or unusual lower extremity swelling or tenderness. 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 Rarely drives for more than 45 minutes before he has to get out and perform other activities. Hospital Course Hospital Course: The patient was admitted with new onset of atrial fibrillation resulting in hypotension and symptomatic dizziness. He responded to initially to IV fluid boluses. He was seen by cardiology and several medications were added. Arrangements were made to transfer the patient to Dr. Alexander Sow, frame builder at [facility] in [place], for consideration of electrophysiology study and possible ablation. Before that could happen, the patient converted back to normal sinus rhythm. He remained stable and asymptomatic after that. Physical Exam Vital Signs: Temp Pulse Resp BP Pulse Ox 97.2 F 74 18 128/72 H 96 01/26/17 07:08 01/26/17 07:08 01/26/17 07:08 01/26/17 07:08 01/26/17 07:08 Intake & Output 01/25/17 01/26/17 01/27/17 06:59 06:59 06:59 Intake Total 3375 3730 Output Total 3200 Balance 175 3730 Weight 123.8 kg 123.1 kg Additional comments: General appearance: PRESENT: no acute distress, well-developed, well-nourished Head exam: PRESENT: atraumatic, normocephalic Eye exam: PRESENT: conjunctiva pink, EOMI, PERRLA. ABSENT: scleral icterus Ear exam: PRESENT: normal external ear exam Mouth exam: PRESENT: moist, tongue midline Neck exam: ABSENT: carotid bruit, JVD, lymphadenopathy, thyromegaly Respiratory exam: PRESENT: clear to auscultation jennifer. ABSENT: rales, rhonchi, wheezes Cardiovascular exam: PRESENT: regular rate and rhythm. ABSENT: diastolic murmur , rubs, systolic murmur Pulses: PRESENT: normal dorsalis pedis pul Vascular exam: PRESENT: normal capillary refill GI/Abdominal exam: PRESENT: normal bowel sounds, soft. ABSENT: distended, guarding, mass, organolmegaly, rebound, tenderness Rectal exam: PRESENT: deferred Extremities exam: PRESENT: full ROM. ABSENT: calf tenderness, clubbing, pedal edema Neurological exam: PRESENT: alert, awake, oriented to person, oriented to place , oriented to time, oriented to situation, CN II-XII grossly intact. ABSENT: motor sensory deficit Psychiatric exam: PRESENT: appropriate affect, normal mood. ABSENT: homicidal ideation, suicidal ideation Skin exam: PRESENT: dry, intact, warm. ABSENT: cyanosis, rash Results Laboratory Results: 01/24/17 12:55 01/23/17 01/23/17 03:46 09:37 Troponin I < 0.012 < 0.012 Impressions: Chest X-Ray 01/22/17 00:00 IMPRESSION: NO ACUTE RADIOGRAPHIC FINDING IN THE CHEST. Qualifiers PATEINT BEING DISCHARGED WITH ANY OF THE FOLLOWING DIAGNOSIS?: No
[2017-01-26] MEDS: MELOXICAM 7.5 MG TABLET PO SCH (11:51)
[2017-01-26 12:39] VITALS: BP 147/75
--- NOTE | 2017-01-26 15:59 | EKG REPORT ---
SEVERITY:- NORMAL ECG - SINUS RHYTHM : Confirmed by: Angelina Hernandez 26-Jan-2017 15:58:06
== END 2017-01-26 13:42 | disposition home or self-care (01) | DRG 310 ==
LOC: ER 18:33 → EH 01-23 00:19 → UNDOADMIN 01-23 00:19 → EH 01-23 00:48 → 3S 01-23 04:16
PROVIDERS: ADMIT Family Medicine; ATTEND Family Medicine
DX: I48.91 Unspecified atrial fibrillation (principal); E11.42 Type 2 diabetes mellitus with diabetic polyneuropathy; E78.5 Hyperlipidemia, unspecified; K21.9 Gastro-esophageal reflux disease without esophagitis; M19.90 Unspecified osteoarthritis, unspecified site; E23.6 Other disorders of pituitary gland; G47.33 Obstructive sleep apnea (adult) (pediatric); I10 Essential (primary) hypertension; E03.9 Hypothyroidism, unspecified; F41.1 Generalized anxiety disorder; F32.9 Major depressive disorder, single episode, unspecified; Z79.82 Long term (current) use of aspirin; Z79.899 Other long term (current) drug therapy; Z87.891 Personal history of nicotine dependence
CPT/HCPCS: 36415; 71010; 80048; 80053; 80061; 81001; 82550; 82553; 82962; 83735; 84443; 84484; 85025; 85379; 85610; 85730; 90686; 93005; 93010; 93306; J1650; J1815; J3490